=== PATIENT | male | born 1960 | race Caucasian/White ===

== ENCOUNTER → 2017-09-09 | Outpatient (CLI) | payer OTHER ==
[2017-09-09 10:03] LABS: ALBUMIN 3.9 gm/dl (3.4-5.0); ALKALINE PHOSPHATASE 59 U/L (45-117); ALT/SGPT 108 U/L (12-78); AST/SGOT 52 U/L (15-37); BLOOD UREA NITROGEN 16 mg/dl (7-18); CALCIUM 8.6 mg/dl (8.5-10.1); CARBON DIOXIDE 27 mmol/L (21-32); CHOLESTEROL 176 mg/dl (0-200); CREATININE 0.52 mg/dl (0.60-1.40); GLUCOSE 107 mg/dl (70-99); LDL CHOLESTEROL CALCULATED 99 mg/dl; POTASSIUM 4.1 mmol/L (3.5-5.1); SODIUM 142 mmol/L (136-145); TOTAL PROTEIN 7.2 gm/dl (6.4-8.2)
== END | disposition home or self-care (01) ==
LOC: C.LAB1850 07:01
PROVIDERS: ATTEND Student in an Organized Health Care Education/Training Program
DX: R63.5 Abnormal weight gain (principal); R74.8 Abnormal levels of other serum enzymes; Z13.1 Encounter for screening for diabetes mellitus

== ENCOUNTER 2017-12-14 16:04 | Emergency (ER) | payer OTHER ==
[~2017-12-14] VITALS: Ht 170.2 cm; Wt 85.3 kg
[2017-12-14 16:07] VITALS: TEMP 36.8; Ht 170.2 cm; Wt 85.3 kg
[2017-12-14] MEDS ORDERED: LIDOCAINE 1% BUFFERED INJ 20 ML VIAL INFIL ONE (16:30)
[2017-12-14] MEDS ORDERED: DIPHTHERIA/TETANUS/PERTUSSIS 0.5 ML SYR/VIAL IM. ONE (16:30)
--- NOTE | 2017-12-14 16:41 | DIAGNOSTIC IMAGING REPORT ---
L FINGER(S) MIN 2 VIEWS ROUTINE CLINICAL HISTORY: left third finger laceration COMPARISON: Left hand radiographs April 09, 2010. FINDINGS: Alignment of the left third finger is anatomic. No acute fracture is identified. There is no radiopaque foreign body. Soft tissue swelling is noted. A sclerotic lesion within the distal phalanx is unchanged and is benign. IMPRESSION: No acute fracture or radiopaque foreign body within the left third finger. Electronically signed by: Constantine Huang M.D. 12/14/2017 4:39 PM Dictated Date/Time: 12/14/2017 4:38 PM
--- NOTE | 2017-12-14 17:22 | EMERGENCY ROOM VISIT NOTE ---
History First contact with patient: 16:12 Chief Complaint: LACERATION/CUT (NON-SUTURE) Stated Complaint: CUT FINGER ON SAW Nursing Triage Summary: laceration from table saw to left 3rd digit History of Present Illness The patient is a 57 year old male who presents to the Emergency Room with complaints of a laceration of his left third finger. The patient states that he cut his finger on a table saw just prior to arrival. He states that his finger slipped. He rates his current discomfort a 5/10 and states the pain is stinging. He denies any numbness or weakness. His tetanus is not up-to-date. Review of Systems A complete 6 point review of systems was reviewed with the patient with pertinent positives and negatives as per history of present illness. All else were negative. Past Medical/Surgical History Medical Problems: (1) No significant active problems Social History Smoking Status: Never Smoker Marital Status: Housing Status: lives with family Current/Historical Medications Miscellaneous Medications None (Patient States No Home Meds) Physical Exam Vital Signs Date Time Temp Pulse Resp B/P (MAP) Pulse Ox O2 Delivery O2 Flow Rate FiO2 12/14/17 17:38 49 20 111/67 95 12/14/17 16:07 36.8 94 20 160/88 96 Room Air Physical Exam VITALS: Vitals are noted on the nurse's note and reviewed by myself. Vital signs stable. GENERAL: This is a 57-year-old male, in no acute distress, nondiaphoretic, well- developed well-nourished. SKIN: There is a 2 cm laceration to the distal aspect of the left third finger, which does involve the distal portion of the fingernail. No active bleeding from the wound. The wound appears clean and there are no foreign body seen. Capillary refill within 2 seconds. MUSCULOSKELETAL: Full range of motion of the left third finger. Strength intact. NEURO: Patient was alert and oriented to person place and time. Distal sensation intact of the left third finger. Medical Decision & Procedures ER Provider Diagnostic Interpretation: L FINGER(S) MIN 2 VIEWS ROUTINE CLINICAL HISTORY: left third finger laceration COMPARISON: Left hand radiographs April 09, 2010. FINDINGS: Alignment of the left third finger is anatomic. No acute fracture is identified. There is no radiopaque foreign body. Soft tissue swelling is noted. A sclerotic lesion within the distal phalanx is unchanged and is benign. IMPRESSION: No acute fracture or radiopaque foreign body within the left third finger. Medications Administered Medications (Trade) Dose Ordered Sig/Geovanna Route Start Time Stop Time Status Last Admin Dose Admin Diphtheria/ Pertussis/Tetanus Vacc (Adacel Inj) 0.5 ml ONCE ONCE IM. 12/14/17 16:30 12/14/17 16:31 DC 12/14/17 16:52 0.5 ML Procedure Verbal consent was obtained to perform the procedure. Using sterile technique the wound was cleaned with Betadine. The area was sterilely draped. 6 ml of 1 % buffered lidocaine was used to perform a digital block to anesthetize the left third finger. Once the patient was anesthetized, the wound was copiously irrigated under pressure with sterile saline. The wound was explored and there were no deep structures injured such as tendons, bone, or significant blood vessels. The laceration was repaired using 4 simple interrupted 4-0 nylon sutures with the wound edges being well approximated. The patient tolerated the procedure well. Hemostasis was achieved. The area was cleaned with sterile saline and dressed with bacitracin ointment and bandage. Medical Decision The patient was evaluated as above. He presents with a finger laceration. X- ray was obtained to rule out any bony injury and was negative. Laceration repair was performed as noted above. The patient tolerated the procedure well. His tetanus was updated. He was placed in a cage splint. Suture care instructions were discussed with the patient. He verbalized understanding of my assessment and treatment plan and was discharged home in good condition. Medication Reconcilliation Current Medication List: was personally reviewed by me Blood Pressure Screening Patient's blood pressure: Elevated blood pressure Blood pressure disposition: Elevated BP felt to be situational Impression Primary Impression: Finger laceration Departure Information Dispostion Home / Self-Care Condition GOOD Referrals Karen Galicia D.O. (PCP) Patient Instructions My [facility] Additional Instructions You have received 4 sutures on your finger. These sutures are NOT dissolvable and WILL need to be removed by a health care provider in 10-12 days. You can return to the Emergency Department or contact your Primary Care Provider to have the sutures removed. Keep the splint in place as needed. Proper wound care is essential for adequate wound healing and infection prevention. You can shower and clean the wound with soap and water. Do not scour over the wound, pat dry with a towel. Do not submerse the wound (i.e. bathe or dish wash) until the sutures have been removed. You can use an antibiotic ointment with a dressing over the wound for the next 3-4 days. After this time you may leave the wound dry and open to the air. If crust develops over the wound you can use a Q-tip to apply a 1:1 peroxide:water solution to clean the wound. Look for signs of infection of the wound including: increased pain, swelling, foul discharge, streaking, or increased temperature. If any of these are noticed you should return to the Emergency Department for further assessment and treatment. As with any laceration you may have received nerve damage to the surrounding tissues. This damage may or may not be permanent. You should keep the area covered with sunscreen for the first 6 months to 1 year when at risk for exposure to help minimize scarring. You can also use scar reducing creams or Vitamin E oil to help minimize scarring. For pain control, you can use the following [id number] medicines (if >12 yo): - Regular strength (325mg/tab) Tylenol (acetaminophen) 2 tabs every 4-6 hours as needed. Do not exceed 12 tablets in a 24 hour period. Avoid taking more than 4 grams (4000 mg) of Tylenol per day. This includes any other sources of acetaminophen you may take on a regular basis. - Regular strength (200 mg/tab) Advil (ibuprofen) 1-2 tabs every 4-6 hours as needed. Do not exceed a dose of 3200 mg per day. Return to the emergency department if your symptoms worsen despite treatment course outlined above. Problem Qualifiers Primary Impression: Finger laceration Encounter type: initial encounter Finger: middle finger Damage to nail status: with damage Foreign body presence: without foreign body Laterality: left Qualified Codes: S61.313A - Laceration without foreign body of left middle finger with damage to nail, initial encounter
[2017-12-14 17:38] VITALS: BP 111/67; PULSE 49; O2SAT 95
== END 2017-12-14 17:39 | disposition home or self-care (01) ==
LOC: C.EDB 16:05 → C.EDD 17:39
DX: S61.313A Laceration without foreign body of left middle finger with damage to nail, initial encounter (principal); W31.2XXA Contact with powered woodworking and forming machines, initial encounter